=== PATIENT | male | born 1975 | race Caucasian/White ===

== ENCOUNTER 2024-11-27 08:20 | Outpatient (CLI) | payer BC, SELFPAY ==
[2024-12-02 19:19] LABS: von WillebrandFactorAntigen 71 % (52-214); vonWillebrandFactorActivityRCF 113 % (51-215)
[2024-12-02 19:19] LABS: von WillebrandFactorAntigen 54 % (52-214); vonWillebrandFactorActivityRCF 78 % (51-215)
[2024-12-02 19:21] LABS: von WillebrandFactorAntigen 30 % (52-214); vonWillebrandFactorActivityRCF 30 % (51-215)
== END 2024-11-27 08:21 | disposition home or self-care (01) ==
PROVIDERS: PCP Internal Medicine; Visit Provider Physician Assistant
DX: D68.00 Von Willebrand disease, unspecified (principal)
CPT/HCPCS: 36415; 85240; 85245; 85246